=== PATIENT | female | born 1975 | race American Indian/Alaskan Native ===

== ENCOUNTER 2018-07-07 13:35 | Emergency (ER) | payer BC, MEDICAID ==
[2018-07-07] MEDS ORDERED: Acetaminophen/oxyCODONE 325-5 MG Tab PO ONE (14:39)
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
== END 2018-07-07 16:03 | disposition home or self-care (01) ==
LOC: JP.ED 13:35
DX: S80.02XA Contusion of left knee, initial encounter (principal); F17.210 Nicotine dependence, cigarettes, uncomplicated; W19.XXXA Unspecified fall, initial encounter
CPT/HCPCS: 73562; 99283; A9270

== ENCOUNTER → 2024-11-30 | Day surgery (SDC) | payer MEDICAID ==
[~2024-11-30] MED LIST: Dexamethasone 4 MG/ML SDV ONE; Glycopyrrolate 0.2 MG/ML 5 ML MDV ONE; KETAMINE IV SCH; Ondansetron 4 MG/2 ML SDV ONE; Propofol 200 MG/20 ML SDV ONE; SODIUM CHLORIDE 0.9% IV SCH; Succinylcholine 200 MG/10 ML MDV ONE; fentaNYL 250 MCG/5 ML SDV ONE
[2024-11-30] MEDS: Ketamine 500 MG/5 ML MDV IV ONE ×3 (04:12→04:33)
[2024-11-30 04:51] LABS: BASOPHILS ABSOLUTE AUTO 0.05 K/uL (0.00-0.10); BASOPHILS PERCENT AUTO 0.3 % (0.1-1.3); EOSINOPHILS ABSOLUTE AUTO 0.08 K/uL (0.00-0.40); EOSINOPHILS PERCENT AUTO 0.5 % (0.0-5.4); IMMATURE GRAN ABSOLUTE AUTO 0.07 K/uL (0.00-0.23); IMMATURE GRAN PERCENT AUTO 0.4 % (0.0-0.7); LYMPHOCYTES ABSOLUTE AUTO 1.41 K/uL (0.8-3.3); LYMPHOCYTES PERCENT AUTO 8.1 % (11.4-47.7); MONOCYTES ABSOLUTE AUTO 0.86 K/uL (0.20-0.90); MONOCYTES PERCENT AUTO 4.9 % (3.3-12.6); NEUTROPHILS ABSOLUTE AUTO 15.04 K/uL (1.0-7.6); NEUTROPHILS PERCENT AUTO 85.8 % (40.0-78.1); PLATELET COUNT,PLT 240 K/uL (130-375); RED BLOOD CELL COUNT 4.17 M/uL (3.77-5.24); WHITE BLOOD CELL COUNT,WBC 17.5 K/uL (3.2-11.0)
[2024-11-30] MEDS: SODIUM CHLORIDE 0.9% IV SCH (05:04)
[2024-11-30] MEDS: KETAMINE IV SCH (05:04)
[2024-11-30 05:05] LABS: BLOOD UREA NITROGEN,BUN 16.0 mg/dL (7-18); CARBON DIOXIDE,CO2 22.0 mmol/L (21-32); CHLORIDE,CL 108.0 mmol/L (100-108); CREATININE 0.8 mg/dL (0.6-1.0); EST CRCL DRUG DOSING (CG) 78.44 mL/min; ESTIMATED GFR 91.0 mL/min (>60); GLUCOSE RANDOM 98.0 mg/dL (74-106); POTASSIUM,K 3.9 mmol/L (3.6-5.2); SODIUM,NA 139.0 mmol/L (140-148)
[2024-11-30] MEDS: Diphtheria,Pertussis(Acell),Tetanus Vaccine 0.5 ML Syringe IM ONE (05:10)
[2024-11-30] MEDS: diphenhydrAMINE 50 MG/ML SDV IVPUSH ONE ×2 (07:34→21:19)
[2024-11-30] MEDS: Iopamidol 755 Mg/ML 100 ML Bottle IV SCH (07:43)
[2024-11-30] MEDS: Sodium Chloride 0.9% 10 ML Syringe FLUSH PRN (07:45)
[2024-11-30] MEDS: Rabies Immune Globulin/PF (HyperRAB) 300 UNIT/ML 1 ML SDV IM ONE (11:30)
[2024-11-30] MEDS: Rabies Vaccine (Avian) 2.5 Unit Inj Kit IM ONE (13:00)
[2024-11-30] MEDS: Bupivacaine 0.25%/EPINEPHrine 1:200,000 30 ML SDV ONE (14:13)
[2024-11-30] MEDS: Amoxicillin/Clavulanate K 875-125 MG Tab PO ONE (21:18)
[2024-11-30] MEDS: Ketorolac 15 MG/ML SDV IVPUSH ONE (21:28)
[2024-12-01 01:03] LABS: BASOPHILS ABSOLUTE AUTO 0.02 K/uL (0.00-0.10); BASOPHILS PERCENT AUTO 0.2 % (0.1-1.3); EOSINOPHILS ABSOLUTE AUTO 0.01 K/uL (0.00-0.40); EOSINOPHILS PERCENT AUTO 0.1 % (0.0-5.4); IMMATURE GRAN ABSOLUTE AUTO 0.04 K/uL (0.00-0.23); IMMATURE GRAN PERCENT AUTO 0.5 % (0.0-0.7); LYMPHOCYTES ABSOLUTE AUTO 2.17 K/uL (0.8-3.3); LYMPHOCYTES PERCENT AUTO 24.7 % (11.4-47.7); MONOCYTES ABSOLUTE AUTO 0.57 K/uL (0.20-0.90); MONOCYTES PERCENT AUTO 6.5 % (3.3-12.6); NEUTROPHILS ABSOLUTE AUTO 5.99 K/uL (1.0-7.6); NEUTROPHILS PERCENT AUTO 68.0 % (40.0-78.1); PLATELET COUNT,PLT 213 K/uL (130-375); RED BLOOD CELL COUNT 3.42 M/uL (3.77-5.24); WHITE BLOOD CELL COUNT,WBC 8.8 K/uL (3.2-11.0)
[2024-12-01] MEDS: Amoxicillin/Clavulanate K 875-125 MG Tab PO ONE (07:44)
== END ==
LOC: JP.ED 03:53 → JP.SDS 08:30
PROVIDERS: ATTEND Surgery
DX: S41.151A Open bite of right upper arm, initial encounter (principal); S31.825A Open bite of left buttock, initial encounter; S81.852A Open bite, left lower leg, initial encounter; W54.0XXA Bitten by dog, initial encounter
CPT/HCPCS: 00400; 12001; 12036; 36415; 73206; 75635; 80048; 80307; 82550; 83605; 85025; 90375; 90471; 90472; 90675; 90715; 96365; 96366; 96367; 96368; 96372; 96375; 96376; 99285; A9270; J0330; J1100; J1200; J1596; J1790; J1885; J2405; J2543; J2704; J2710; J3010; J7030; Q9967; 99284; J1171; J3490

== ENCOUNTER 2024-12-16 13:19 | Day surgery (SDC) | payer MEDICAID ==
[~2024-12-16 13:19] MED LIST changes: -Dexamethasone 4 MG/ML SDV ONE; -Glycopyrrolate 0.2 MG/ML 5 ML MDV ONE; -KETAMINE IV SCH; +Lactated Ringers 1,000 ML IV SCH; -Ondansetron 4 MG/2 ML SDV ONE; -Propofol 200 MG/20 ML SDV ONE; -SODIUM CHLORIDE 0.9% IV SCH; -Succinylcholine 200 MG/10 ML MDV ONE; -fentaNYL 250 MCG/5 ML SDV ONE
[2024-12-16] MEDS ORDERED: Midazolam 1 MG/ML 2 ML SDV ONE (13:41)
[2024-12-16] MEDS ORDERED: fentaNYL 100 MCG/2 ML SDV ONE (13:41)
[2024-12-16] MEDS ORDERED: Propofol 200 MG/20 ML SDV ONE (13:41)
[2024-12-16] MEDS: Lactated Ringers 1,000 ML IV SCH (13:45)
[2024-12-16] MEDS: Hydrogen Peroxide 3% Top Soln 240 ML Bottle ONE (14:34)
== END 2024-12-16 15:37 | disposition home or self-care (01) ==
LOC: JP.SDS 13:19
PROVIDERS: ATTEND Surgery
DX: Z48.02 Encounter for removal of sutures (principal); L03.317 Cellulitis of buttock; L53.9 Erythematous condition, unspecified
CPT/HCPCS: 15851; A9270; J0690; J2250; J2704; J3010; J7120; 00300-QZ